=== PATIENT | male | born 1930 | race Caucasian/White ===

== ENCOUNTER → 2016-12-12 | Outpatient (CLI) | payer OTHER, MEDICAID | LOC: BMCIMAGING 10:39 | PROVIDERS: ATTEND Family Medicine | DX: M79.671 Pain in right foot (principal) ==

== ENCOUNTER → 2018-05-18 | Outpatient (CLI) | payer OTHER, MEDICAID | LOC: BMCIMAGING 11:05 | PROVIDERS: ATTEND Emergency Medicine | DX: S93.402A Sprain of unspecified ligament of left ankle, initial encounter (principal) ==